=== PATIENT | female | born 1975 | race Hispanic/Latino ===

== ENCOUNTER 2017-01-22 14:55 | Observation (INO) | payer BC ==
[2017-01-22 17:23] VITALS: BMI 21.6
[2017-01-22 17:27] VITALS: O2SAT 100
[2017-01-22] MEDS ORDERED: Sodium Chloride 0.9% 1,000 ML IV STA (17:37)
--- NOTE | 2017-01-22 17:45 | ED PDOC ---
Arrival/HPI - General Chief Complaint: GI Problem Time Seen by Provider: 01/22/17 17:25 Historian: Patient - History of Present Illness Narrative History of Present Illness (Text): 01/22/17 17:46 A 41 year old female, whose past medical history includes migraine headaches and severe headaches associated with sinusitis, presents to the emergency department complaining of headache and vomiting today. Patient reports it feels similar to previous symptoms. Patient also notes dizziness and she can't stand straight. Notes taking Zofran with no relief. Patient reports the n/v but denies any diarrhea, fever, sore throat, cough, shortness of breath, abdominal pain or any other complaints at this time. No focal weakness. Symptom Onset: Sudden Symptom Course: Unchanged Activities at Onset: Rest Context: Home Associated Symptoms (Text): dizziness Past Medical History - Provider Review Nursing Documentation Reviewed: Yes - Psychiatric Hx Depression: No Hx Emotional Abuse: No Hx Physical Abuse: No Hx Substance Use: No - Suicidal Assessment Feels Threatened In Home Enviroment: No Family/Social History - Physician Review Nursing Documentation Reviewed: Yes Family/Social History: No Known Family HX Smoking Status: Never Smoked Hx Alcohol Use: No Hx Substance Use: No Hx Substance Use Treatment: No Allergies/Home Meds Allergies/Adverse Reactions: Allergies No Known Allergies Allergy (Verified 01/22/17 17:25) Review of Systems - Physician Review All systems were reviewed & negative as marked: Yes - Review of Systems Constitutional: absent: Fevers Eyes: Photophobia. absent: Vision Changes, Eye Pain ENT: absent: Sore Throat Respiratory: absent: SOB, Cough Gastrointestinal: Nausea, Vomiting. absent: Abdominal Pain, Diarrhea Neurological: Headache (frontal into paranasal areas), Dizziness Physical Exam Vital Signs Reviewed: Yes Vital Signs Temp Pulse Resp BP Pulse Ox 01/22/17 17:27 98 F 75 16 101/68 100 Temperature: Afebrile Blood Pressure: Normal Pulse: Regular Respiratory Rate: Normal Appearance: Positive for: Non-Toxic Pain Distress: Mild Mental Status: Positive for: Alert and Oriented X 3 - Systems Exam Head: Present: Atraumatic, Normocephalic Pupils: Present: PERRL Extroacular Muscles: Present: EOMI Conjunctiva: Present: Normal Mouth: Present: Moist Mucous Membranes Pharnyx: Present: Normal. No: ERYTHEMA, EXUDATE Neck: Present: Normal Range of Motion Respiratory/Chest: Present: Clear to Auscultation, Good Air Exchange. No: Respiratory Distress, Accessory Muscle Use Cardiovascular: Present: Regular Rate and Rhythm, Normal S1, S2. No: Murmurs Abdomen: Present: Normal Bowel Sounds. No: Tenderness, Distention, Peritoneal Signs Back: Present: Normal Inspection Upper Extremity: Present: Normal Inspection. No: Cyanosis, Edema Lower Extremity: Present: Normal Inspection. No: Edema Neurological: Present: GCS=15, CN II-XII Intact, Speech Normal, Motor Func Grossly Intact, Gait Normal Skin: Present: Warm, Dry, Normal Color. No: Rashes Psychiatric: Present: Alert, Oriented x 3, Normal Insight, Normal Concentration Medical Decision Making ED Course and Treatment: 01/22/17 17:43 Impression: A 41 year old female with headache and vomiting. Differential Diagnosis included but are not limited to: Migraines vs. Sinusitis vs Tension Headache Plan: -- labs -- Urinalysis -- Pepcid, Reglan, Toradol, IV fluids, Zofran, Fioricet -- Reassess and disposition Prior Visits: Notes and results from previous visits were reviewed. Patient last reported to the emergency department on 01/17/12 for evaluation of headache with nausea and vomiting. Progress Notes: 01/22/17 27:35 Patient with noted history and saying her migraines and sinusitis frequently present this way; will treat for migraines and sinusitis. Patient placed in observation. - Lab Interpretations Lab Results: 01/22/17 17:50 01/22/17 17:50 Lab Results 01/22/17 20:00: Urine Color Yellow, Urine Appearance Clear, Urine pH 5.5, Ur Specific [place] >= 1.030, Urine Protein Trace H, Urine Glucose (UA) Negative, Urine Ketones Negative, Urine Blood Negative, Urine Nitrate Negative, Urine Bilirubin Negative, Urine Urobilinogen 0.2, Ur Leukocyte Esterase Negative, Urine RBC 0 - 2, Urine WBC 1 - 3, Ur Epithelial Cells 4 - 5, Urine Bacteria Mod , Urine HCG, Qual Negative 01/22/17 17:50: Sodium 138, Potassium 3.6, Chloride 103, Carbon Dioxide 24, Anion Gap 15, BUN 15, Creatinine 1.0, Est GFR ( Amer) > 60, Est GFR (Non- Af Amer) > 60, Random Glucose 100, Calcium 9.6, Total Bilirubin 0.8, AST 38, ALT 33, Alkaline Phosphatase 51, Total Protein 7.5, Albumin 4.4, Globulin 3.1, Albumin/Globulin Ratio 1.4, Lipase 119 01/22/17 17:50: WBC 7.4, RBC 4.16, Hgb 12.2, Hct 36.3, MCV 87.3, MCH 29.3, MCHC 33.6, RDW 13.4, Plt Count 275, MPV 10.4, Gran % 66.8, Lymph % (Auto) 25.9, [place] % (Auto) 6.2 H, Eos % (Auto) 0.8 L, Baso % (Auto) 0.3, Gran # 4.94, Lymph # 1.9 , [place] # 0.5, Eos # 0.1, Baso # 0.02 I have reviewed the lab results: Yes - Medication Orders Current Medication Orders: Discontinued Medications Acetaminophen/Butalbital/Caffeine (Fioricet) 2 tab PO ONCE STA Stop: 01/22/17 18:51 Last Admin: 01/22/17 19:43 Dose: 2 tab Amoxicillin/Clavulanate Potassium (Augmentin 875 Mg-125 Mg Tab) 1 tab PO STAT STA PRN Reason: Protocol Stop: 01/22/17 20:48 Famotidine (Pepcid) 20 mg IVP STAT STA Stop: 01/22/17 17:38 Last Admin: 01/22/17 19:45 Dose: 20 mg Sodium Chloride (Sodium Chloride 0.9%) 1,000 mls @ 999 mls/hr IV .Q1H1M STA Stop: 01/22/17 18:37 Last Admin: 01/22/17 17:49 Dose: 999 mls/hr Ketorolac Tromethamine (Toradol) 30 mg IVP STAT STA Stop: 01/22/17 17:38 Last Admin: 01/22/17 19:44 Dose: 30 mg Metoclopramide HCl (Reglan) 10 mg IVP STAT STA Stop: 01/22/17 17:38 Last Admin: 01/22/17 19:44 Dose: 10 mg Ondansetron HCl (Zofran Inj) 4 mg IVP STAT STA Stop: 01/22/17 18:51 Last Admin: 01/22/17 19:45 Dose: 4 mg ED OBSERVATION Discharge: Yes Date of observation admission: 01/22/17 Time of observation admission: 17:25 - Observation admission statement Patient is being placed in observation because:: Patient with headache, vomiting, and dizziness - Goals of Observation Goals of observation are:: To improve symptoms and determine disposition. - Progress Note Progress Note: 01/22/17 18:45 Patient says her nausea is improved but still there; she says her dizziness is much better but still has the headache. Ordered additional zofran and fioricet for headache. 01/22/17 18:55 Per RN, patient had not actually received her pain meds because she had not given urine for a test. 01/22/17 19:30 test is negative; she will receive her meds for the headache. 01/22/17 20:46 Patient says she is feeling much better with full resolution of headache, dizziness, and nausea. Given her history of severe sinusitis, where she says she frequently needs abx in addition to the pseudoephedrine and nasal spray, will start her on Augmentin and discharge. 01/22/17 21:41 Patient says she responds better to zithromax; will switch to z-pack. - Scribe Statement The provider has reviewed the documentation as recorded by the Felisa Boucher Provider Scribe Attestation: All medical record entries made by the Scribe were at my direction and personally dictated by me. I have reviewed the chart and agree that the record accurately reflects my personal performance of the history, physical exam, medical decision making, and the department course for this patient. I have also personally directed, reviewed, and agree with the discharge instructions and disposition. Disposition/Present on Arrival - Present on Arrival Any Indicators Present on Arrival: No History of DVT/PE: No History of Uncontrolled Diabetes: No Urinary Catheter: No History of Decub. Ulcer: No History Surgical Site Infection Following: None - Disposition Have Diagnosis and Disposition been Completed?: Yes Diagnosis: Headache, Vomiting Disposition: HOME/ ROUTINE Disposition Time: 17:25 Patient Plan: Discharge Patient Problems: Current Active Problems Problem Status Onset Headache Acute Vomiting Acute Condition: GOOD Discharge Instructions (ExitCare): Migraine Headache (ED) Additional Instructions: Take the antibiotics as prescribed. You may use your zofran at home for nausea and medications for migraine for headache. Follow up with your primary care doctor. Return to the emergency department if any new concerning symptoms. Prescriptions: Azithromycin [Zithromax] 2 tab PO DAILY #6 tab
[2017-01-22 17:58] LABS: ADD MANUAL DIFF? NO
[2017-01-22 18:14] LABS: ALB/GLOB RATIO 1.4 (1.1-1.8); ALKALINE PHOSPHATASE 51 U/L (38-133); ALT/SGPT 33 U/L (7-56); AST/SGOT 38 U/L (15-39); BILIRUBIN,TOTAL 0.8 mg/dL (0.2-1.3); BLOOD UREA NITROGEN 15 mg/dL (7-21); CALCIUM 9.6 mg/dL (8.4-10.5); CARBON DIOXIDE 24 mmol/L (21-33); CHLORIDE 103 mmol/L (98-107); GFR AFRICAN-AMERICAN > 60; GLUCOSE,RANDOM 100 mg/dL (70-110); LIPASE 119 U/L (23-300); POTASSIUM 3.6 mmol/L (3.6-5.0); SODIUM 138 mmol/L (132-148); TOTAL PROTEIN 7.5 g/dL (5.8-8.3)
[2017-01-22 18:16] LABS: BASO # 0.02 K/mm3 (0.0-2.0); BASO % 0.3 % (0.0-3.0); EOS # 0.1 (0.0-0.7); EOS % 0.8 % (1.5-5.0); GRAN # 4.94 (1.4-6.5); GRAN % 66.8 % (50.0-68.0); HEMATOCRIT 36.3 % (36.0-48.0); LYMPH # 1.9 (1.2-3.4); LYMPH % 25.9 % (22.0-35.0); MEAN CELL VOLUME 87.3 fL (80.0-105.0); MEAN CORPUSCULAR HEMOGLOBIN 29.3 pg (25.0-35.0); MEAN CORPUSCULAR HGB CONC 33.6 g/dl (31.0-37.0); MEAN PLATELET VOLUME 10.4 fl (7.0-11.0); MONO # 0.5 (0.1-0.6); MONO % 6.2 % (1.0-6.0); PLATELET COUNT 275 10^3/uL (120.0-450.0); RED CELL DISTRIBUTION WIDTH 13.4 % (11.5-14.5); WHITE BLOOD COUNT 7.4 10^3/ul (4.5-11.0)
[2017-01-22] MEDS ORDERED: Apap-Butalbital-Caffeine 325-50-40mg Tab PO STA (18:50)
[2017-01-22 20:26] LABS: PH,URINE 5.5 (4.7-8.0); URINE BILIRUBIN NEGATIVE (NEGATIVE); URINE BLOOD NEGATIVE (NEGATIVE); URINE GLUCOSE (UA) NEGATIVE (NEGATIVE); URINE KETONE NEGATIVE (NEGATIVE); URINE LEUKOCYTE ESTERASE NEGATIVE Leu/uL (NEGATIVE); URINE PROTEIN TRACE mg/dL (<30 mg/dL); URINE UROBILINOGEN 0.2 E.U./dL (<1 E.U./dL)
[2017-01-22 20:27] LABS: URINE APPEARANCE CLEAR (CLEAR); URINE COLOR YELLOW (YELLOW)
[2017-01-22 20:32] LABS: URINE BACTERIA MOD (NEG); URINE RBC 0 - 2 /hpf (0-2)
[2017-01-22] MEDS ORDERED: Amoxicillin-Clav 875-125 mg Tab PO STA (20:47)
[2017-01-22 22:42] VITALS: BP 110/70; PULSE 72; RESP 15; TEMP 98.2
== END 2017-01-22 21:46 | disposition home or self-care (01) ==
LOC: ED 17:23 → EROBSV 17:25
PROVIDERS: ADMIT Emergency Medicine; ATTEND Emergency Medicine
DX: R51 Headache (principal); R11.10 Vomiting, unspecified
CPT/HCPCS: 80053; 81001; 83690; 84703; 85025; 87086; 96361; 96374; 96375; 99284; G0378; J1885; J2405; J2765; J7040

== ENCOUNTER 2017-03-14 15:39 | Emergency (ER) | payer BC ==
[2017-03-14 15:39] VITALS: BMI 21.6
[2017-03-14 16:11] VITALS: TEMP 97.9
[2017-03-14] MEDS ORDERED: Sodium Chloride 0.9% 1,000 ML IV STA (18:01)
--- NOTE | 2017-03-14 18:06 | ED PDOC ---
Arrival/HPI - General Chief Complaint: GI Problem Time Seen by Provider: 03/14/17 17:58 Historian: Patient - History of Present Illness Narrative History of Present Illness (Text): 03/14/17 17:48 Shira Zheng is a 41 year old female, whose past medical history includes sinus infections, who presents to the emergency department complaining of 3 day duration of vomiting, nausea, and a headache. Patient confirms that these symptoms are similar to past sinus infections. Patient denies any fevers, chills, or any other complaints at this time. PMD: Dr. Soriano Time/Duration: < week Symptom Onset: Gradual Symptom Course: Unchanged Severity Level: Mild Activities at Onset: Light Context: Home Past Medical History - Provider Review Nursing Documentation Reviewed: Yes - Infectious Disease Hx of Infectious Diseases: None - HEENT Other/Comment: Chronic sinus problem - Psychiatric Hx Depression: No Hx Emotional Abuse: No Hx Physical Abuse: No Hx Substance Use: No - Surgical History Other/Comment: L hand surgery. L eye socket fx - Anesthesia Hx Anesthesia: Yes Hx Anesthesia Reactions: No Hx Malignant Hyperthermia: No - Suicidal Assessment Feels Threatened In Home Enviroment: No Family/Social History - Physician Review Nursing Documentation Reviewed: Yes Family/Social History: No Known Family HX Smoking Status: Never Smoked Hx Alcohol Use: No Hx Substance Use: No Hx Substance Use Treatment: No Allergies/Home Meds Allergies/Adverse Reactions: Allergies No Known Allergies Allergy (Verified 01/22/17 17:25) Physical Exam - Physical Exam Narrative Physical Exam (Text): - Review of Systems Constitutional: Normal. absent: Fatigue, Weight Change, Fevers Eyes: Normal ENT: Normal Respiratory: Normal absent: SOB, Cough, Sputum Cardiovascular: Normal absent: Chest pain, Palpitations, Syncope Gastrointestinal: Nausea. Vomiting. absent: Abdominal pain, Diarrhea, Genitourinary: Normal. absent: Dysuria, Frequency, Hematuria Musculoskeletal: Normal. absent: Arthralgias, Back Pain, Neck Pain Skin: Normal Neurological: Headache absent: Focal Weakness Endocrine: Normal Hemo/Lymphatic: Normal Psychiatric: Normal - Physical exam Patient appears age appropriate, speaking full sentences without difficulty - Systems Exam Head: Present: Atraumatic, Normocephalic Pupils: Present: PERRL Extraocular Muscles: Present: EOMI Conjunctiva: Present: Normal Mouth: Present: Moist Mucous Membranes Neck: Present: Normal Range of Motion. No: MIDLINE TENDERNESS, Paraspinal Tenderness Respiratory/Chest: Present: Clear to Auscultation, Good Air Exchange. No: Respiratory Distress, Accessory Muscle Use, Tachypnic Cardiovascular: Present: Regular Rate and Rhythm, Normal S1, S2, Peripheral Pulses Present. No: Murmurs Abdomen: Present: Normal Bowel Sounds, No: Tenderness, Peritoneal Signs, Rebound, Guarding, Distention Back: Present: Normal Inspection. No: Midline Tenderness, Paraspinal Tenderness Upper Extremity: Present: Normal Inspection. No: Cyanosis, Edema Lower Extremity: Present: Normal Inspection. No: Edema Neurological: Present: GCS=15, Speech Normal, cranial nerves II through XII fully intact with no cerebellar abnormality, neuro-sensory fully intact. No focal neurological deficits. Skin: Present: Warm, Dry, Normal Color. No: Rashes Lymphatic: Present: OX3, NI, NC Psychiatric: Present: Alert, Oriented x 3, Normal Insight, Normal Concentration Vital Signs Reviewed: Yes Vital Signs Temp Pulse Resp BP Pulse Ox 03/14/17 18:29 75 17 115/80 100 03/14/17 16:11 97.9 F 78 18 111/74 100 Temperature: Afebrile Blood Pressure: Normal Pulse: Regular Respiratory Rate: Normal Appearance: Positive for: Well-Appearing, Non-Toxic, Comfortable Pain Distress: None Mental Status: Positive for: Alert and Oriented X 3 Medical Decision Making ED Course and Treatment: 03/14/17 17:48 Impression: 41 year old female complaining of vomiting, nausea, and headache for 3 days. Pt states these symptoms are identical to her previous sinusitis symptoms. Pt's CARBAJAL is similar to previous. Not the worst CARBAJAL of her life. Not posterior. No f/c. Differential Diagnosis included but are not limited to: Sinusitis, CARBAJAL Plan: -- Labs -- Toradol, Tylenol and IV fluids -- Reassess and disposition Prior Visits: Notes and results from previous visits were reviewed. Patient last seen in the ED on 01/22/17 for dizziness, nausea, and headache. Patient was discharged home. Progress Notes: 03/14/17 20:50 on reeval pt states she feels much better and would like to be dc'd home no focal neurological deficits on reeval had a dw pt about pro's and con's of CT head, agree not to proceed with head CT at this time Pt states she understands to return to the ER right away for new or worsening symptoms or for inability to f/u with PMD or specialist as instructed. Patient states that she fully agrees with and understands discharge instructions. States that she agrees with the plan and disposition. Verbalized and repeated discharge instructions and plan. I have given the patient opportunity to ask any additional questions. - Lab Interpretations Lab Results: 03/14/17 18:10 03/14/17 18:10 Lab Results 03/14/17 18:10: Sodium 140, Potassium 3.9, Chloride 103, Carbon Dioxide 27, Anion Gap 14, BUN 12, Creatinine 0.9, Est GFR ( Amer) > 60, Est GFR (Non- Af Amer) > 60, Random Glucose 87, Calcium 9.3, Total Bilirubin 0.8, AST 27, ALT 29, Alkaline Phosphatase 50, Total Protein 7.0, Albumin 4.4, Globulin 2.6, Albumin/Globulin Ratio 1.7, Lipase 123 03/14/17 18:10: WBC 7.6, RBC 4.35, Hgb 13.0, Hct 37.6, MCV 86.4, MCH 29.9, MCHC 34.6, RDW 13.3, Plt Count 298, MPV 9.8, Gran % 64.0, Lymph % (Auto) 28.8, [place] % (Auto) 5.8, Eos % (Auto) 1.0 L, Baso % (Auto) 0.4, Gran # 4.89, Lymph # 2.2, [place] # 0.4, Eos # 0.1, Baso # 0.03 I have reviewed the lab results: Yes - Medication Orders Current Medication Orders: Discontinued Medications Acetaminophen (Tylenol 325mg Tab) 975 mg PO STAT STA Stop: 03/14/17 18:02 Last Admin: 03/14/17 18:27 Dose: 975 mg Sodium Chloride (Sodium Chloride 0.9%) 1,000 mls @ 1,000 mls/hr IV .Q1H STA Stop: 03/14/17 19:00 Last Admin: 03/14/17 18:27 Dose: 1,000 mls/hr Ketorolac Tromethamine (Toradol) 30 mg IVP STAT STA Stop: 03/14/17 18:02 Last Admin: 03/14/17 18:27 Dose: 30 mg - Scribe Statement The provider has reviewed the documentation as recorded by the Felisa Murdock Provider Scribe Attestation: All medical record entries made by the Scribe were at my direction and personally dictated by me. I have reviewed the chart and agree that the record accurately reflects my personal performance of the history, physical exam, medical decision making, and the department course for this patient. I have also personally directed, reviewed, and agree with the discharge instructions and disposition. Disposition/Present on Arrival - Present on Arrival Any Indicators Present on Arrival: No History of DVT/PE: No History of Uncontrolled Diabetes: No Urinary Catheter: No History of Decub. Ulcer: No History Surgical Site Infection Following: None - Disposition Have Diagnosis and Disposition been Completed?: Yes Diagnosis: Headache Disposition: HOME/ ROUTINE Disposition Time: 20:57 Patient Plan: Discharge Condition: GOOD Discharge Instructions (ExitCare): Sinusitis (ED), General Headache (ED) Additional Instructions: PLEASE RETURN TO THE EMERGENCY DEPARTMENT FOR NEW OR WORSENING SYMPTOMS. RETURN RIGHT AWAY IF YOU CANNOT FOLLOW UP WITH YOUR PRIMARY CARE DOCTOR, CLINIC, OR SPECIALIST IN 1-2 DAYS. Prescriptions: Amoxicillin/Clavulanate [Augmentin 875 MG-125 MG] 1 tab PO BID #14 tab Ibuprofen [Motrin] 600 mg PO Q8 PRN #12 tab PRN Reason: Pain, Moderate (4-7) Ondansetron [Zofran Odt] 4 mg PO Q6 PRN #14 odt PRN Reason: Nausea/Vomiting Referrals: Yordy Soriano MD [Primary Care Provider] - Follow up with primary Singh Felipe MD [Staff Provider] - Follow up with primary Forms: [employer] ([place]), WORK NOTE
[2017-03-14 18:29] VITALS: RESP 17
[2017-03-14 18:43] LABS: BASO # 0.03 K/mm3 (0.0-2.0); BASO % 0.4 % (0.0-3.0); EOS # 0.1 (0.0-0.7); GRAN # 4.89 (1.4-6.5); LYMPH # 2.2 (1.2-3.4); LYMPH % 28.8 % (22.0-35.0); MEAN CELL VOLUME 86.4 fl (80.0-105.0); MEAN CORPUSCULAR HEMOGLOBIN 29.9 pg (25.0-35.0); MEAN CORPUSCULAR HGB CONC 34.6 g/dl (31.0-37.0); MEAN PLATELET VOLUME 9.8 fl (7.0-11.0); MONO # 0.4 (0.1-0.6); MONO % 5.8 % (1.0-6.0); PLATELET COUNT 298 10^3/uL (120.0-450.0); RBC 4.35 10^6/uL (3.5-6.1); RED CELL DISTRIBUTION WIDTH 13.3 % (11.5-14.5); WHITE BLOOD COUNT 7.6 10^3/ul (4.5-11.0)
[2017-03-14 18:45] LABS: ALB/GLOB RATIO 1.7 (1.1-1.8); ALBUMIN 4.4 g/dL (3.0-4.8); ALT/SGPT 29 U/L (7-56); AST/SGOT 27 U/L (15-39); BLOOD UREA NITROGEN 12 mg/dL (7-21); CALCIUM 9.3 mg/dL (8.4-10.5); GFR AFRICAN-AMERICAN > 60; GFR NON-AFRICAN AMERICAN > 60; LIPASE 123 U/L (23-300)
[2017-03-14 21:14] VITALS: BP 119/70; PULSE 65; O2SAT 99
== END 2017-03-14 21:14 | disposition home or self-care (01) ==
LOC: ED 15:39
DX: R51 Headache (principal)
CPT/HCPCS: 80053; 83690; 85025; 96361; 96374; 99285; J1885; J7040

== ENCOUNTER 2018-06-16 07:45 | Emergency (ER) | payer BC ==
[2018-06-16 07:45] VITALS: BMI 21.6
--- NOTE | 2018-06-16 08:32 | ED PDOC ---
Arrival/HPI - General Chief Complaint: Upper Extremity Problem/Injury Time Seen by Provider: 06/16/18 07:46 Historian: Patient - History of Present Illness Narrative History of Present Illness (Text): 06/16/18 08:30 A 42 year old female, whose past medical history includes sinus disease, presents to the emergency department complaining of right shoulder pain for the past 2 days. Patient reports she slipped and fell on an icy step yesterday and landed on her right side. Patient reports she is unable to lift above shoulder level due to pain. Noted ecchymosis to right lateral thigh, not concerned with any particular injury. Patient states no trouble walking or in bending hip or leg. Patient denies head strike, loss of consciousness, nausea, vomiting, numbness or motor weakness or any other complaints. Time/Duration: Other (2 days) Symptom Onset: Sudden Symptom Course: Unchanged Activities at Onset: Light Context: Home Past Medical History - Provider Review Nursing Documentation Reviewed: Yes - Infectious Disease Hx of Infectious Diseases: None - Neurological Hx Neurological Disorder: Yes Hx Headaches: Yes Hx Migraine: Yes - HEENT Other/Comment: Chronic sinus problem - Psychiatric Hx Depression: No Hx Emotional Abuse: No Hx Physical Abuse: No Hx Substance Use: No - Surgical History Other/Comment: L hand surgery. L eye socket fx - Anesthesia Hx Anesthesia: Yes Hx Anesthesia Reactions: No Hx Malignant Hyperthermia: No - Suicidal Assessment Feels Threatened In Home Enviroment: No Family/Social History - Physician Review Nursing Documentation Reviewed: Yes Family/Social History: No Known Family HX Smoking Status: Never Smoked Hx Alcohol Use: No Hx Substance Use: No Hx Substance Use Treatment: No Allergies/Home Meds Allergies/Adverse Reactions: Allergies No Known Allergies Allergy (Verified 06/16/18 07:54) Home Medications: Home Meds Medication Instructions Recorded Confirmed Cyclobenzaprine [Flexeril] 1 tab PO DAILY PRN 06/16/18 06/16/18 Review of Systems - Physician Review All systems were reviewed & negative as marked: Yes - Review of Systems Gastrointestinal: absent: Nausea, Vomiting Musculoskeletal: absent: Other (motor weakness) Neurological: absent: Other (no head strike or numbness) Physical Exam - Physical Exam Narrative Physical Exam (Text): 06/16/18 08:35 Constitutional: No acute distress. Head: Normocephalic. Atraumatic. Eyes: PERRL. ENT: Moist mucous membranes. Respiratory: Clear to auscultation bilaterally. Musculoskeletal: Right posterior shoulder tenderness. No deformity. Full ROM with pain. Full ROM actively and passively of elbow wrist and digits. Radial pulse 2+. Skin: No rash. No edema. Neurologic: Alert, no focal deficit. Vital Signs Reviewed: Yes Vital Signs Temp Pulse Resp BP Pulse Ox 06/16/18 07:47 98 F 63 19 106/58 L 99 Temperature: Afebrile Blood Pressure: Hypotensive Pulse: Regular Respiratory Rate: Normal Appearance: Positive for: Well-Appearing, Non-Toxic, Comfortable Pain Distress: None Mental Status: Positive for: Alert and Oriented X 3 Medical Decision Making ED Course and Treatment: 06/16/18 08:35 Impression: 42 year old female presenting to the emergency room with right shoulder pain. Plan: -- Toradol -- Xray of right shoulder -- Reassess and disposition Prior Visits: Notes and results from previous visits were reviewed. Progress Notes: 06/16/18 09:45 Procedure: Radiographs of right shoulder Impression: Normal radiographs of the right shoulder. Dictator: Mychal Ma MD provided. Discharged home, f/u Ortho for persistent pain. - RAD Interpretation Radiology Orders: 06/16/18 08:27 SHOULDER RIGHT [RAD] Stat - Medication Orders Current Medication Orders: Discontinued Medications Ketorolac Tromethamine (Toradol) 60 mg IM STAT STA Stop: 06/16/18 08:28 - Scribe Statement The provider has reviewed the documentation as recorded by the Felisa Murdock All medical record entries made by the Scribe were at my direction and personally dictated by me. I have reviewed the chart and agree that the record accurately reflects my personal performance of the history, physical exam, medical decision making, and the department course for this patient. I have also personally directed, reviewed, and agree with the discharge instructions and disposition. Disposition/Present on Arrival - Present on Arrival Any Indicators Present on Arrival: No History of DVT/PE: No History of Uncontrolled Diabetes: No Urinary Catheter: No History of Decub. Ulcer: No History Surgical Site Infection Following: None - Disposition Have Diagnosis and Disposition been Completed?: Yes Diagnosis: Shoulder pain Disposition: HOME/ ROUTINE Disposition Time: 09:32 Patient Plan: Discharge Condition: STABLE Discharge Instructions (ExitCare): Shoulder Sprain Prescriptions: Ibuprofen [Motrin] 1 tab PO Q6 #30 tab Referrals: Paolo Costa MD [Staff Provider] - Follow up with primary Forms: [employer] ([place]), WORK NOTE
--- NOTE | 2018-06-16 09:25 | RAD ---
Date of service: 06/16/2018 PROCEDURE: Radiographs of the Right Shoulder HISTORY: fall, R shoulder pain COMPARISON: No prior. FINDINGS: BONES: Normal. No fracture. JOINTS: Normal. Glenohumeral and acromioclavicular joints preserved. No osteoarthritis. SOFT TISSUES: Normal. OTHER FINDINGS: None. IMPRESSION: Normal radiographs of the right shoulder.
[2018-06-16 10:07] VITALS: BP 110/72; PULSE 67; RESP 20; TEMP 98; O2SAT 100
== END 2018-06-16 09:41 | disposition home or self-care (01) ==
LOC: ED 07:45
DX: M25.511 Pain in right shoulder (principal)
CPT/HCPCS: 73030; 96372; 99283; J1885